=== PATIENT | female | born 1940 | race Caucasian/White ===

== ENCOUNTER 2016-10-05 10:31 | Inpatient (IN) | payer MEDICARE, BC ==
--- NOTE | ~2016-10-05 | CN ---
Consultation Report [facility] [address] [place]. [address] NAME: GUSTABO MAGALLANES DECEMBER : [birth year] STATUS : ADM IN [facility]#: [id number] AGE: 75 ADM/REG DATE : 10/05/16 MR#: [id number] REPORT SERV DATE: 10/09/16 DICTATED BY: CATY SPEAR DATE: 10/09/16 REPORT STATUS : Draft TRANSCRIBED BY: MODL DATE: 10/09/16 INFECTIOUS DISEASE CONSULT DATE OF CONSULTATION: REASON FOR REFERRAL: Evaluation and treatment of resistant pathogen. HISTORY OF PRESENT ILLNESS: The patient is a 75-year-old female. She has a history of hypertension, diabetes mellitus, hypothyroidism, atrial fibrillation, and hyperlipidemia. She had a long hospitalization at [facility] in the fall of 2015, among other things, suffered cerebrovascular accident, was left with encephalopathy, essentially nonresponsive with that. She became vent dependent and has been vent dependent since then at [facility]. I do not have any history here of antibiotic treatment in the intervening period. Since she left [facility], she was admitted here on 10/05/2016 after an observed aspiration event. She had no fever, but marked rise in white blood cell count, and an elevated procalcitonin, and a chest x-ray with new infiltrates on the right lung. Cultures, tracheal aspirate were obtained. She was started empirically on vancomycin and Zosyn. Blood cultures were done and have remained negative. Her urine did show pyuria and is growing gram-positive cocci. A tracheal aspirate showed many white blood cells and many gram-positive cocci, actually on the Gram stain, then, grew abundant Acinetobacter that is resistant to all tested antibiotics. She in the meantime on vancomycin and Zosyn has remained afebrile. White blood cell count has gone almost to normal. Her chest x-ray has improved since admission. She continues on the ventilator, but of course is chronically dependent on that and unlikely to ever come off it. PAST MEDICAL HISTORY: Otherwise, unremarkable. MEDICATIONS: As mentioned above, more than 40 minutes of time were spent reviewing extensive records and cultures in addition to the usual consult time. ALLERGIES: SHE HAS NO KNOWN ANTIMICROBIAL ALLERGIES. SOCIAL HISTORY: She is a resident of [facility]. There is no family present. She has no history of smoking or alcohol abuse. Per the record, she is . FAMILY HISTORY: Noncontributory. PHYSICAL EXAMINATION: GENERAL: A chronically ill-appearing, elderly, female, lying quietly in bed, unresponsive on the ventilator via a trach. VITAL SIGNS: Her temperature has remained normal. It at present is 98.3, pulse 77, respirations 29, blood pressure 100/40, weight 75 kg. HEENT: Sclerae are clear. Mouth shows dry mucous membranes. No ulcerations. NECK: Without lymphadenopathy. Trach site shows no signs of inflammation. Consultation Report [place] [id number] [address] NAME: GUSTABO MAGALLANES DECEMBER : [birth year] STATUS : ADM IN [facility]#: [id number] AGE: 75 ADM/REG DATE : 10/05/16 MR#: [id number] REPORT SERV DATE: 10/09/16 DICTATED BY: CATY SPEAR DATE: 10/09/16 REPORT STATUS : Draft TRANSCRIBED BY: ESTEBAN DATE: 10/09/16 LUNGS: There are scattered crackles heard anteriorly, otherwise clear, but they are mainly focused on the right. HEART: Irregular. ABDOMEN: Soft, nontender. Positive bowel sounds. EXTREMITIES: Without clubbing or cyanosis. No rashes noted. IV site without signs of inflammation in the right upper extremity. LABORATORY DATA: White count is 24.5 at admission, 11.1 today with hematocrit of 24, platelets 249; there were 12% bands two days ago, no bandemia today. BUN and creatinine 50 and 1.68. IMPRESSION: 1. Likely an aspiration pneumonitis, but actually responding to Zosyn showing improvement in white blood cell count and chest x-ray, so I suspect Acinetobacter is a colonization agent and not a pathogen. 2. Possible urinary tract infection. It is difficult to say for sure since her urine will always be abnormal with a chronic Hernandez, but if it is enterococcus, it should be covered by the Zosyn to which it is sensitive. RECOMMENDATIONS: 1. Continue Zosyn. We will treat for five days. We will stop the vancomycin. She needs to continue strict isolation in the ICU with a resistant pathogen. 2. Finally, I will follow the patient with you. I appreciate very much your consulting on this patient. LUZMARIA Caty Spear M.D. / [id number] CC: Russell Beard M.D.
--- NOTE | ~2016-10-05 | CN ---
Consultation Report [facility] [address] [place]. [address] NAME: GUSTABO MAGALLANES DECEMBER : [birth year] STATUS : ADM IN PAT#: [id number] AGE: 75 ADM/REG DATE : 10/05/16 MR#: [id number] REPORT SERV DATE: 10/06/16 DICTATED BY: BRUNO WALLS DATE: 10/06/16 REPORT STATUS : Draft TRANSCRIBED BY: MODL DATE: 10/06/16 GI CONSULTATION DATE OF CONSULTATION: 10/06/2016 REASON FOR CONSULTATION: Evaluation and management of hematemesis. HISTORY OF PRESENT ILLNESS: It should be noted that the history of present illness has been gathered from the chart as well as talking to the urban anthropologist service. Ms. Magallanes is a 75-year-old female patient, who was seen by Dr. Lawson in 04/2016 for possible biliary malignancy, undergoing EUS 05/06/2016. She has a history of on 05/14/2017 suffering an apparent left hemispheric stroke and was transferred from [facility] to [facility] for potential endovascular intervention and appears that she received a PEG tube there as well as tracheostomy with chronic ventilator dependence, now living at [facility]. She was sent over from [facility] yesterday secondary to what appears to have been large volume coffee-grounds emesis with subsequent aspiration. She has been afebrile. She has noted dark, dried, old blood around her mouth and on her tongue. Her PEG tube presently is to wall suction with green and dark [id number] intermixed pieces in it. She is minimally responsive. There is no obvious abdominal discomfort on exam. I have discussed the case with [employer]. We will potentially plan on doing an endoscopy today to rule out esophagitis, gastritis, peptic ulcer disease, or ulcer secondary to PEG tube. 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 ALLERGIES: SHE HAS NO KNOWN DRUG ALLERGIES. SOCIAL HISTORY: She is . There is no history of alcohol tobacco or illicits. She is presently living at [facility]. HOME MEDICATIONS: Tylenol, albuterol, aspirin, baclofen, Rocephin, Zyrtec, Lasix, Enulose, Keppra, levothyroxine, Lopressor, probiotic, Singulair, multivitamin, Protonix, Dilantin, potassium, Zocor, Ultram, and glucagon. REVIEW OF SYSTEMS: Unable to be obtained secondary to the patient's mental status. PERTINENT LABORATORY DATA: Sodium 141, potassium 3.8, BUN is 55, creatinine 2.09. White count 18.9, hemoglobin 7.2, hematocrit 22.7, platelet count 361. INR of 1.4. Consultation Report [facility] [address] [place]. [address] NAME: GUSTABO MAGALLANES DECEMBER : [birth year] STATUS : ADM IN [facility]#: [id number] AGE: 75 ADM/REG DATE : 10/05/16 MR#: [id number] REPORT SERV DATE: 10/06/16 DICTATED BY: BRUNO WALLS DATE: 10/06/16 REPORT STATUS : Draft TRANSCRIBED BY: ESTEBAN DATE: 10/06/16 PHYSICAL EXAMINATION: VITAL SIGNS: Temperature 99.1, pulse 99, respirations 32, blood pressure 113/48. NEURO: Reveals a minimally responsive female, resting in bed with eyes closed. GENERAL: She is in no obvious distress. Unable to assess orientation. HEAD EARS, EYES, NOSE, AND THROAT: Anicteric. Pupils are equal, round, reactive to light and accommodation. Normocephalic, atraumatic. NECK: No JVD. No palpable nodes. LUNGS: Rhonchi throughout. Ventilator and tracheostomy in place. CARDIOVASCULAR SYSTEM: Irregularly irregular rate and rhythm. Atrial fib, controlled rate though. ABDOMEN: Soft. Mild abdominal wall edema. PEG tube without any drainage around it or redness. No bleeding around it. The PEG tube to suction has green to brown to black output in it. Hypoactive bowel sounds. EXTREMITIES: 2+ bilateral lower extremity edema. ASSESSMENT AND PLAN: 1. Upper gastrointestinal bleed with coffee-ground emesis, reported very large volume. 2. Acute blood loss anemia with a history of chronic anemia. 3. Aspiration pneumonia. 4. Chronic respiratory failure, ventilator dependent. 5. Dysphagia with chronic PEG. 6. History of left cerebrovascular accident with resultant right hemiparesis. PLAN: 1. EGD today. 2. Follow H and H. 3. Continue Protonix drip. 4. Other recommendations to follow endoscopy. FABIEN/ESTEBAN LAURA Joe / [id number] CC: Russell Beard M.D.
--- NOTE | ~2016-10-05 | EGD ---
EGD REPORT [facility] [address] [place]. [address] NAME: PAM MAGALLANES : 36 STATUS : ADM IN PAT#: [id number] AGE: 75 ADM/REG DATE : 10/05/16 MR#: [id number] REPORT SERV DATE: 10/07/16 DICTATED BY: JUAN LUIS CHERY DATE: 10/07/16 REPORT STATUS : Draft TRANSCRIBED BY: IATARH [facility] DATE: 10/07/16 Endoscopy Center Patient Name: Pam Magallanes Date of : 1940 Attending MD: JUAN LUIS CHERY MD Procedure Date No Time: 10/06/2016 Procedure: Upper GI endoscopy Indications: Hematemesis Medicines: Monitored Anesthesia Care Complications: No immediate complications. Estimated blood loss: Minimal. Procedure: Pre-Anesthesia Assessment: - ASA Grade Assessment: IV - A patient with severe systemic disease that is a constant threat to life. After obtaining informed consent, the endoscope was passed under direct vision. Throughout the procedure, the patient's blood pressure, pulse, and oxygen saturations were monitored continuously. The GIF [id number] was introduced through the mouth, and advanced to the second part of duodenum. The upper GI endoscopy was accomplished without difficulty. The patient tolerated the procedure well. Findings: Few superficial esophageal ulcers with no bleeding and no stigmata of recent bleeding were found at the gastroesophageal junction. The largest lesion was 8 mm in largest dimension. One non-bleeding cratered gastric ulcer with no stigmata of bleeding was found in the gastric body under the PEG. The lesion was 6 mm in largest dimension. The PEG tube was loosened. One oozing superficial gastric ulcer was found in the gastric body, secondary to trauma from the PEG tube being hooked up to suction. The lesion was 8 mm in largest dimension. A medium-sized hiatus hernia was present. The examined duodenum was normal. Impression: - Non-bleeding esophageal ulcers. - Gastric ulcer with clean base under PEG tube. Loosened. - Gastric ulcer oozing blood. PEG removed from suction. - Hiatal hernia. - Normal examined duodenum. Recommendation: - NPO for 1 day. - Use Protonix (pantoprazole) 40 mg PO BID for 8 weeks. EGD REPORT [address] [address] NAME: PAM MAGALLANES DECEMBER : [birth year] STATUS : [facility]#: [id number] AGE: 75 ADM/REG DATE : 10/05/16 MR#: [id number] REPORT SERV DATE: 10/07/16 DICTATED BY: JUAN LUIS CHERY DATE: 10/07/16 REPORT STATUS : Draft TRANSCRIBED BY: [employer] DATE: 10/07/16 Procedure Code(s): --- Professional --- 66402, Esophagogastroduodenoscopy, flexible, transoral; diagnostic, including collection of specimen(s) by brushing or washing, when performed (separate procedure) Diagnosis Code(s): --- Professional --- K22.10, Ulcer of esophagus without bleeding K25.9, Gastric ulcer, unspecified as acute or chronic, without hemorrhage or perforation K25.4, Chronic or unspecified gastric ulcer with hemorrhage K92.0, Hematemesis CPT copyright 2013 [employer]. All rights reserved. The codes documented in this report are preliminary and upon machine shop worker review may be revised to meet current compliance requirements. Juan Luis Chery MD JUAN LUIS CHERY MD 10/07/2016 9:40 AM This report has been signed electronically. Number of Addenda: 0 Note Initiated On: 10/06/2016 5:39 PM Scope Withdrawal Time 0 hours 0 minutes 0 seconds [address] [place] [address]
--- NOTE | ~2016-10-05 | HP ---
History And Physical [place] [id number] [place]. [address] NAME: GUSTABO MAGALLANES DECEMBER : [birth year] STATUS : ADM IN [facility]#: [id number] AGE: 75 ADM/REG DATE : 10/05/16 MR#: [id number] REPORT SERV DATE: 10/06/16 DICTATED BY: ANDREA JOLLEY DATE: 10/06/16 REPORT STATUS : Draft TRANSCRIBED BY: MODL DATE: 10/06/16 DATE OF ADMISSION: 10/05/2016 Ashley Chavez, nurse practitioner, dictating for Dr. Andrea Jolley. CHIEF COMPLAINT: The patient is a 75-year-old female, who was transferred from [facility] for complaint of hematemesis and possible aspiration pneumonia. HISTORY OF PRESENT ILLNESS: The patient is a 75-year-old female with a history of chronic respiratory failure with mechanical ventilator dependency, is a resident of [facility] at [facility], was transferred to the emergency room for bloody emesis and suspicion of aspiration pneumonia. Patient with chronic respiratory failure required mechanical ventilation with history of CVA with right-sided weakness. Intensivists were consulted yesterday for management of mechanical ventilation. The patient was empirically treated with IV Zosyn and vancomycin for aspiration pneumonia as well as IV fluids and IV Protonix. The patient was admitted to MICU for continued mechanical ventilation support and medical management. The patient is sedated and unable to arouse even with moderate stimulation, therefore unable to obtain complete medical family and social history. No family members present at the bedside and most information obtained from reviewing current medical record from [facility] as well as records obtained from [facility] at [facility]. ALLERGIES: NO KNOWN DRUG ALLERGIES. CODE STATUS: DNR limited. MEDICATIONS: Currently includes 1. Baclofen 5 mg p.o. t.i.d. 2. Cefepime 1 g IV q.12 hours. 3. Vancomycin pharmacy dosing. 4. Metoprolol tartrate 12.5 mg p.o. q.12 hours. 5. Keppra 500 mg p.o. q.12 h. 6. Synthroid 150 mcg p.o. a.c. before breakfast. 7. Lactulose 45 mL p.o./liquid b.i.d. 8. Ipratropium albuterol 3 mL inhalation q.4 hours. 9. Dextrose 5% water 50 mL IV q.12 hours. 10.The patient is currently on Precedex drip as well as normal saline at 100 mL/h. PAST MEDICAL HISTORY: To include 1. Diabetes. 2. Hypertension. 3. Hypothyroidism. 4. History of atrial fibrillation. 5. Dysphagia status post PEG. History And Physical [place] [address] [place]. [address] NAME: GUSTABO MAGALLANES DECEMBER : [birth year] STATUS : ADM IN [facility]#: [id number] AGE: 75 ADM/REG DATE : 10/05/16 MR#: [id number] REPORT SERV DATE: 10/06/16 DICTATED BY: ANDREA JOLLEY DATE: 10/06/16 REPORT STATUS : Draft TRANSCRIBED BY: ESTEBAN DATE: 10/06/16 6. Hyperlipidemia. 7. History of ischemic stroke in April of 2016. 8. Chronic respiratory failure, mechanical vent dependence. 9. History of seizure. 10.History of left upper extremity DVT. 11.History of encephalopathy secondary to ischemic stroke. 12.Right hemiparesis secondary to left MCA ischemic stroke. PAST SURGICAL HISTORY: 1. History of AICD placement by Dr. Casey. 2. Pericardial window. 3. Status post tracheostomy and PEG tube placement. SOCIAL HISTORY: The patient is a current resident at the [facility]. No history of alcohol, tobacco, or illegal drug use. REVIEW OF SYSTEMS: Limited secondary to the patient unresponsive. PHYSICAL EXAMINATION: VITAL SIGNS: Temperature of 91.1, pulse of 99, respiratory rate 31 on CMV, blood pressure of 113/48, O2 saturation of 98%, and fiO2 at 40% with CMV mechanical ventilation with tidal volume of 400, a total tidal volume of 50, PEEP of 26, FiO2 of 40%, and PEEP of 5. LABORATORY STUDIES: To include ABG done on 10/05/2016 with pH of 7.57, pCO2 of 29, PO2 of 264, HCO2 of 26, and FiO2 of 100%. ABG repeated on 10/06/2016 with pH of 7.5, pCO2 of 36, PO2 of 19, HCO2 of 27.9, and IO2 of 40.0. Troponin was 0.06. Lactate on admission on 10/05/2016 was 4.5 and repeat this morning was 4.0. WBC on admission on admission on 3.8 was 24.8, hemoglobin 10.0, hematocrit 32.1. Repeat today WBC of 18.9, hemoglobin 7.2, hematocrit 22.7, INR of 1.4, PT 14, 17.3, PTT of 28.7, platelet of 501 on 10/05/2016 on 10/13/2016 today. On 10/05/2016, sodium was 136, potassium of 5.0, chloride 95, CO2 of 28, BUN 46, creatinine of 2.3, GFR of 23, and glucose of 128. On 10/06/2016, sodium of 141, potassium 3.8, chloride 105, CO2 of 25, BUN 55, creatinine 2.09, GFR of 22, and glucose of 113. Mag on 10/05/2016 was 2.8; repeat today at 10/06/2016 was 2.4, phosphorus is 5.3, AST on 10/05/2016 was 28, bilirubin 0.7, total protein was 8.2, ALT 12, albumin of 1.5, and ALP was 82. On 10/06/2016, AST of 19, bilirubin of 0.5, total protein of 6.3, ALT 13, albumin 1.2, and ALP of 64. Chest x-ray on 10/05/2016 revealed extensive new airspace disease in the right lung that may be related to pneumonia, aspiration or post obstructive pneumonitis. No pneumothorax or pleural effusion noted. Repeat chest x-ray on 10/06/2016, substantial change in the patient's position obscuring the right hilum. No extensive infiltrate seen elsewhere. Blood culture 2/2- times 1 day. Sputum Gram stain is greater than 100 wbc's with many gram- positive cocci in pairs, rare yeast. Serum cultures pending. History And Physical [address] [address] NAME: GUSTABO MAGALLANES DECEMBER : [birth year] STATUS : ADM IN [facility]#: [id number] AGE: 75 ADM/REG DATE : 10/05/16 MR#: [id number] REPORT SERV DATE: 10/06/16 DICTATED BY: ANDREA JOLLEY DATE: 10/06/16 REPORT STATUS : Draft TRANSCRIBED BY: MODL DATE: 10/06/16 PHYSICAL EXAMINATION: NEUROLOGIC: The patient is unresponsive. HEENT: Oral mucosa moist. Eyes, PERRL, nonicteric bilaterally. NECK: Noted trach secured without drainage. CHEST: No deformity noted. LUNGS: Clear to auscultation bilaterally. CV: No murmurs noted. Noted slightly irregular heart rate and rhythm. ABDOMEN: Soft, nontender, obese with hypoactive bowel sounds throughout. PEG tube secured in the left upper quadrant without drainage noted feeding connected at this time since patient n.p.o. EXTREMITIES: Noted right arm peripheral IV, dry and intact dressing without redness. Left arm peripheral IV secured. Right inner thigh dressing is intact, sacral dressing intact, and right lateral health dressing intact 2+ noted in bilateral lower extremity. Both heels are floated. IV fluids, currently with Precedex drip and normal saline 100 mL/h and normal saline at 20 mL/h. ASSESSMENT: 1. Hematemesis likely secondary to possible GI bleed. 2. Leukocytosis likely secondary to aspiration pneumonia versus hospital-acquired pneumonia. 3. Right lung pneumonia, aspiration versus healthcare associated pneumonia. 4. Acute blood loss with a history of chronic anemia, likely secondary to possible GI bleed. 5. Possible GI bleed. 6. Chronic respiratory failure, status post ischemic stroke. 7. Dysphagia, status post PEG tube. 8. Type 2 diabetes. 9. History of atrial fibrillation, status post AICD. 10.Hypertension, controlled. 11.Hypothyroidism. 12.History of previous left MCA ischemic stroke with right-sided weakness. 13.History of seizure disorder. 14.History of DVT of the left upper extremity. 15.History of encephalopathy secondary to CVA. PLAN: 1. Appreciate consult with the associate professor of geology to manage the patient's mechanical ventilation. Continue to monitor sat O2, breathing treatment, trach care and suction. The patient currently on CMV with FiO2 of 40%, no current weaning at this time. The patient is at risk for further hypoxia. 2. Patient with possible GI bleed. GI consult appreciated. The patient was seen and is pending EGD by Dr. Chua. The patient remained n.p.o. The patient did have a type and cross for 2 units of packed red blood cells as needed on 10/05/2016. Admission H and H were 10.0 and 30.2; this morning is 7.2 and 22.7. We will hopefully discover the History And Physical [address] [place]. [address] NAME: GUSTABO MAGALLANES DECEMBER : [birth year] STATUS : ADM IN PAT#: [id number] AGE: 75 ADM/REG DATE : 10/05/16 MR#: [id number] REPORT SERV DATE: 10/06/16 DICTATED BY: ANDREA JOLLEY DATE: 10/06/16 REPORT STATUS : Draft TRANSCRIBED BY: MODL DATE: 10/06/16 source of bleeding and if needed, we will transfuse the patient and monitor H and H closely. The patient is at risk for acute myocardial infarction or further hypoxia. 3. Right lung pneumonia, likely aspiration versus hospital acquired pneumonia. The patient's admission chest x-ray was abnormal with changes in the right lung and repeat, this morning did not show much improvement. We will continue to follow chest x-ray. The patient's recent Gram stain does show significant gram-positive cocci. Sputum culture is pending. We will follow culture. Patient currently being empirically treated with cefepime and vancomycin. Managed by pharmacy. Pharmacy will follow Vanco trough and adjust the dosing depending on creatinine. 4. Possible GI bleed. Pending EGD by GI today. Continue IV Protonix and monitor H and H closely. No current anticoagulation given the patient's possible GI bleed. The patient did have a history of being on aspirin. We will continue sequential device for DVT prophylaxis. 5. Chronic respiratory failure, secondary to history of CVA. The patient remained on the vent, managed by intensivists. No weaning at this time. 6. Patient with a PEG tube but currently n.p.o. pending EGD. We will monitor PEG site and when patient is ready for resuming tube feeding, we will have registered dietitian recommend tube feeding in initial rate as well as max rate. Keep head of bed greater than 30 degrees. The patient is at risk for recurrent aspiration. 7. Patient with history of diabetes. We will closely monitor blood sugar. The patient's serum blood sugar was 113 this morning but the patient is n.p.o. We will place the patient on sliding scale level 1 once patient starts her tube feeding and monitor for elevated blood sugar results and if needed, we will give p.r.n. sliding scale NovoLog. The patient is at risk for DKA. 8. The patient with history of atrial fibrillation is status post AICD with slight irregular beat. The patient's heart rate is better controlled. The patient currently not on any anticoagulation given the patient's current possible acute GI bleed. Medication list from [facility] reveals the patient not on any aggressive anticoagulation therapy, only on aspirin. The patient is at risk for RVR, CVA. 9. Patient with history of hypertension, appears to be in good control. We will continue current med regimen with beta makenna. The patient is at risk for CVA, blood pressure not well controlled. 10.We will resume levothyroxine for treatment of hypothyroidism. 11.Continue current regimen of fentanyl, pending fentanyl level today to monitor for any signs and symptoms of seizure. The patient is at risk for status epilepticus. 12.Once the patient's medical condition is more stable and improved, we will likely need to refer her to PT. Continue frequent positional changes. The patient was seen by wound care today. Recommend daily wound care to thoracic spine, sacral wound. The patient is at risk for wound infection or osteomyelitis. 13.The patient remains a code status of DNR with limited intervention. Post form copy in chart. Once the patient's medical condition is stable, we will plan to discharge the patient back to [facility] for continued long-term care. 14.Acute on chronic kidney disease stage 3. We will continue to monitor renal function. The patient is at risk for worsening acute kidney injury/hemodialysis. 15.We will continue current IV fluids. Monitor blood pressure. The patient is at risk for sepsis, septic shock. History And Physical [address] [address] NAME: GUSTABO MAGALLANES DECEMBER : [birth year] STATUS : ADM IN [facility]#: [id number] AGE: 75 ADM/REG DATE : 10/05/16 MR#: [id number] REPORT SERV DATE: 10/06/16 DICTATED BY: ANDREA JOLLEY DATE: 10/06/16 REPORT STATUS : Draft TRANSCRIBED BY: ESTEBAN DATE: 10/06/16 DICTATED BY: DEBI Villavicencio/ESTEBAN Andrea Jolley M.D. / [id number] CC: Huber Costa M.D.
--- NOTE | ~2016-10-05 | DS ---
Discharge Summary [facility] [address] [place]. [address] NAME: GUSTABO MAGALLANES DECEMBER : [birth year] STATUS : DIS IN PAT#: [id number] AGE: 75 ADM/REG DATE : 10/05/16 MR#: [id number] REPORT SERV DATE: 10/25/16 DICTATED BY: ANDREA JOLLEY DATE: 10/24/16 REPORT STATUS : Draft TRANSCRIBED BY: ESTEBAN DATE: 10/24/16 Data Collection from hospitalization DISCHARGE DIAGNOSES: 1. Right lung pneumonia - aspiration/healthcare-acquired pneumonia with multi-drug resistant organisms. 2. Leukocytosis. 3. Upper gastrointestinal bleed secondary to distal esophagus ulcer and ulcer adjacent to the PEG tube. 4. Chronic respiratory failure. 5. Dysphagia with PEG tube. 6. Type 2 diabetes mellitus. 7. History of atrial fibrillation, status post ICD. 8. Hypertension - controlled. 9. Hypothyroidism. 10.History of ischemic stroke and a history of seizure. 11.Right hemiparesis. CONSULTATIONS: 1. Branden Guerra M.D. 2. LAURA Joe. 3. Helder Cullen M.D. PROCEDURES PERFORMED: Upper GI endoscopy on 10/06/2016. PATHOLOGY: ( ). MEDICATIONS: Dilantin 100 mg per PEG tube every eight hours, Protonix 40 mg per PEG tube before breakfast, Tylenol 650 mg every six hours as needed orally or rectally as instructed, sodium bicarbonate 325 mg as needed, Keppra 500 mg per PEG tube twice a day, Ativan 2 mg every three hours via PEG tube as instructed, and morphine sulfate solution every three hours as instructed. CONDITION AT DISCHARGE: Stable. DISPOSITION: The patient was transferred to [facility], comfort measures only. HOSPITAL COURSE: This is a 75-year-old female who was transferred from [facility] for complaints of hematemesis and possible aspiration pneumonia. The patient has a history of chronic respiratory failure with mechanical ventilator dependency. The patient was transferred to the emergency room with bloody emesis and suspicion of aspiration pneumonia. The patient has chronic respiratory failure and required mechanical ventilation with a history of CVA with right-sided weakness. The patient was admitted to the MICU for continued mechanical ventilation support and medical management. Upon admission, the patient was seen by Dr. Branden Guerra. The patient was started on cefepime and vancomycin in the emergency room. She received pulsed saline and Protonix Discharge Summary [place] [address] [place]. [address] NAME: GUSTABO MAGALLANES : [birth year] STATUS : DIS IN PAT#: [id number] AGE: 75 ADM/REG DATE : 10/05/16 MR#: [id number] REPORT SERV DATE: 10/25/16 DICTATED BY: ANDREA JOLLEY DATE: 10/24/16 REPORT STATUS : Draft TRANSCRIBED BY: ESTEBAN DATE: 10/24/16 drip. IV Protonix was continued as well as sequential device for DVT prophylaxis. Level 1 sliding scale insulin would begin once the patient started her tube feedings. The patient remained a DNR code status with limited intervention. The following day, the patient was seen by Tristin Guevara. The patient was minimally responsive. The patient has had upper GI bleed with coffee-grounds emesis - reported very large volume. She was felt to have acute blood loss anemia with a history of chronic anemia. An EGD was going to be performed. Protonix drip was continued. The patient was taken to the endoscopic suite by Dr. Juan Luis Chua where she underwent the above-mentioned procedure. She tolerated this well, and there were no complications. There were nonbleeding esophageal ulcers. There was a gastric ulcer with clean base under the PEG tube that was loosened. The gastric ulcer with oozing blood. The PEG tube was removed from suction. There was a hiatal hernia. There was a normal examined duodenum. On 10/07/2016, the patient remained on the ventilator. There were no signs of further bleeding. Hemoglobin was stable. Tube feedings would be resumed later in the day. Antibiotics were continued. On 10/08/2016, chest x-ray showed some vascular congestion. White blood cell count was 11.1. She remained mostly unresponsive except to pain. She was seen in consultation by Dr. Helder Cullen for evaluation and treatment of resistant pathogen. Cultures and tracheal aspirate had been obtained. She had been started empirically on vancomycin and Zosyn. Blood cultures had remained negative. Her urine did show pyuria and was growing gram- positive cocci. Tracheal aspirates showed many white blood cells and many gram-positive cocci actually on the Gram stain and then grew abundant Acinetobacter that was resistant to all tested antibiotics. In the meantime, while on vancomycin and Zosyn, she remained afebrile. Her white count was almost to normal. Chest x-ray had improved since admission. She was felt to likely have aspiration pneumonitis, but was actually responding to Zosyn. This was continued. Vancomycin was stopped. She has remained on strict isolation in the ICU with this resistant pathogen. On 10/09/2016, she was slightly more responsive. She was in no distress. A rectal tube was in place. On 10/10/2016, she remained sedated on the ventilator. She was afebrile. White count 14.5. IV heparin continued. Stool was being checked for C. difficile. The patient was being treated with IV cefepime. She completed her IV cefepime on 10/11/2016. The patient was receiving comfort measures at this time. Tube feedings had been discontinued. The patient has carbapenems resistant Acinetobacter. She remained afebrile. She was continued on comfort measures. Her ICD was deactivated on 10/12/2016. She remained hemodynamically stable. On 10/14/2016, she remained unresponsive. Her T-max was 100.1. We discussed the patient's condition at length with her who was in agreement with comfort care measures. Discharge instructions were given. Due to her stable condition, she was discharged to [facility] at [facility] with the above-stated instructions. Information collected by: Tatum Borges I submit the above information as my discharge summary. KADIE/ESTEBAN Andrea Jolley M.D. Discharge Summary [address] [address] NAME: GUSTABO MAGALLANES DECEMBER : 36 STATUS : DIS IN PAT#: [id number] AGE: 75 ADM/REG DATE : 10/05/16 MR#: [id number] REPORT SERV DATE: 10/25/16 DICTATED BY: ANDREA JOLLEY DATE: 10/24/16 REPORT STATUS : Draft TRANSCRIBED BY: ESTEBAN DATE: 10/24/16 / [id number] CC: Andrea Jolley M.D. Tristin LAURA Guevara M.D. [facility]
--- NOTE | ~2016-10-05 | CN ---
Consultation Report [facility] [address] [place]. [address] NAME: GUSTABO MAGALLANES DECEMBER : 36 STATUS : ADM IN LOCATED [facility]IN [facility]#: [id number] AGE: 75 ADM/REG DATE : 10/05/16 MR#: [id number] REPORT SERV DATE: 10/05/16 DICTATED BY: KAYA GUERRA DATE: 10/05/16 REPORT STATUS : Draft TRANSCRIBED BY: MODL DATE: 10/05/16 CONSULTATION DATE OF CONSULTATION: 10/05/2016 TIME: 1315 hours. Seen in ER bed 4. HISTORY OF PRESENT ILLNESS: A 75-year-old white female, who presents to the [facility] this morning with hematemesis and GI bleed. She is at [facility] on chronic ventilation, said she stayed at [facility] several months ago. She has sequelae of this severe stroke. She had dropped her O2 saturations and is suspected to have aspirated versus hospital- acquired pneumonia. She has a chronic tracheostomy in place. On arrival in the ER, blood pressure was 130/43, temperature 99, respiratory rate 24. She got a pulse saline and Protonix drip, started on cefepime and vancomycin. PAST MEDICAL HISTORY: Significant for ischemic CVA, right-sided weakness, and aphasia. The patient says she is minimally responsive. She has seizure history, diabetes, hypothyroidism, hypertension, atrial fibrillation, hyperlipidemia, obstructive jaundice with ERCP in 04/2016 with stent placed. She had DVT history in left upper extremity, dysphagia status post PEG. She has a pacemaker placed by Dr. Casey. ALLERGIES: NO KNOWN ALLERGIES. PHYSICAL EXAMINATION: GENERAL: Currently, the patient is orally as tracheotomy, placed on a ventilator. VITAL SIGNS: Blood pressure 118/55, pulse 160, AFib, temperature 99. LUNGS: Rhonchi bilaterally, right greater than left. Chest x-ray shows right lower lobe infiltrate. CARDIAC: Regular, atrial fibrillation. ABDOMEN: Soft and nontender. PEG tube in place. EXTREMITIES: Left leg appears to be swollen. NEUROLOGIC: She is minimally responsive. LABORATORY DATA: Sodium 136, potassium 5.0, chloride 95, CO2 of 28, BUN 46, creatinine 2.03 which is up. H and H 10 and 32, white count 24,506, platelets 101,000. Albumin 1.5. Total bilirubin 0.7. Troponin 0.06. PT 17.3, INR 1.4, PTT 20.5. Lactate 4.5. Arterial blood gas showed pH of 7.57, pCO2 of 29, pO2 of 64 on 100%. IMPRESSION: 1. Hematemesis. 2. Possible aspiration pneumonia with infiltrate and leukocytosis. 3. Chronic respiratory failure, on ventilator dependence. 4. Previous cerebrovascular accident. 5. Diabetes, hypothyroidism, atrial fibrillation, and hypertension. Consultation Report [place] [address] [place]. [address] NAME: GUSTABO MAGALLANES DECEMBER : [birth year] STATUS : ADM IN PAT#: [id number] AGE: 75 ADM/REG DATE : 10/05/16 MR#: [id number] REPORT SERV DATE: 10/05/16 DICTATED BY: KAYA GUERRA DATE: 10/05/16 REPORT STATUS : Draft TRANSCRIBED BY: ESTEBAN DATE: 10/05/16 PLAN: Continue IV fluids antibiotics. Get GI consult. Start Protonix infusion. Med list, please see chart. HOME MEDICATIONS: Include acetaminophen 325, albuterol nebulization, aspirin 81 mg daily, baclofen 10 mg by PEG three times daily, Rocephin 1 g IV started on 10/04/2016, Zyrtec 10, furosemide 40, lactulose 10/45 mL twice a day, Keppra 500 mg per PEG twice a day, Synthroid 150 per PEG before breakfast, Lopressor 12.5 mg per PEG twice a day, probiotic capsule once daily, Singulair 10 mg every morning, multivitamins, Protonix 40, Dilantin 100 mg by PEG every eight hours, KCl 30 mEq every morning, tramadol 50 every 12 hours, Zocor 20. RP/ESTEBAN Kaya Guerra M.D. / [id number] CC: Russell Beard M.D.
[~2016-10-05 10:31] MED LIST: ACTONEL35 MG PO; ALTA2.5 PO; ASAB PO; BEN25 PO; CALGLUCTAB PO; CALTRA600D PO; D3; L20 PO; LEVOTHYROXIN100 MCG PO; LEVOTHYROXIN112 MCG PO; LEVOTHYROXIN150 MCG PO; LEVOTHYROXIN88 MCG PO; MAXIMUM D3 PO; MULTIPLE VIT PO; MULTIVIT/MIN PO; NORCO1 TA1 PO; OS500+D PO; OYST-CAL500 MG PO; PR25 PO; PRADAXA150 MG PO; PRAV10 PO; ROCALTROL 0.0.25 MCG OR; ROCALTROL0.25 MCG OR; RYTHMOL225 MG PO; SYN112 PO; TOPXL50 PO; VITAMIN D31000 UNIT PO; VITD PO
[2016-10-05 11:09] LABS: BASOPHILS 0.1 %; BASOPHILS ABSOLUTE 0.02 10/3/uL (0.0-0.16); EOSINOPHILS 0.1 %; EOSINOPHILS ABSOLUTE 0.02 10/3/uL (0.0-0.53); HEMATOCRIT 32.1 % (36.0-48.0); IMMATURE GRANULOCYTES 0.4 %; LYMPHOCYTES 3.1 %; LYMPHOCYTES ABSOLUTE 0.75 10/3/uL (0.67-4.30); MEAN CORPUS HGB CONC 31.2 g/dL (32.0-36.0); MEAN CORPUSCULAR HEMOGLOB 30.7 pg (26.0-34.0); MEAN CORPUSCULAR VOLUME 98.5 fL (80-100); MEAN PLATELET VOLUME 9.1 fL (9.2-13.0); MONOCYTES 2.3 %; MONOCYTES ABSOLUTE 0.57 10/3/uL (0.21-1.20); NEUTROPHILS ABSOLUTE 23.07 10/3/uL (2.02-8.40); PLATELET COUNT 501 10/3/uL (150-400); RED CELL COUNT 3.26 10/6/uL (4.0-5.6)
[2016-10-05 11:10] LABS: ER CBC TAT 0 Hrs 07 Mins; MANUAL DIFF NO %; WHITE BLOOD CELLS 24.5 10/3/uL (4.5-10.5)
[2016-10-05 11:14] LABS: INTERNATIONAL NORMAL RATI 1.4 UNITS (-); PARTIAL THROMBO TIME 28.7 SEC (22.5-37.2)
[2016-10-05 11:15] LABS: PROTIME (NOT ORD) 17.3 SEC (12.0-14.5)
[2016-10-05 11:26] LABS: CALCIUM, SERUM 8.8 MG/DL (8.5-10.4); CHLORIDE, SERUM 95 MMOL/L (96-112); CO2 (CARBON DIOXIDE) 28 MMOL/L (24-34); SODIUM, SERUM 136 MMOL/L (135-148)
[2016-10-05 11:28] LABS: BUN (BLOOD UREA NITROGEN) 46 MG/DL (6-23); CHEST PAIN PROFILE TAT 0 Hrs 25 Mins; CREATININE 2.03 MG/DL (0.55-1.02); GFR AFRICAN AMERICAN 27 ML/MIN (>=60); GFR NON AFRICAN AMERICAN 23 ML/MIN (>=60); GLUCOSE, SERUM 128 MG/DL (60-99); TROPONIN I 0.06 NG/ML (<0.05)
[2016-10-05 11:32] LABS: ANISOCYTOSIS 1+ (5-10/OIF) (0-5/OIF); BAND NEUTROPHILS 6 %; ER DIFF TAT 0 Hrs 29 Mins; LYMPHOCYTES 6 %; LYMPHOCYTES ABSOLUTE (CALC) 1.47 10/3/uL (0.67-4.30); MONOCYTES 4 %; MONOCYTES ABSOLUTE (CALC) 0.98 10/3/uL (0.21-1.20); NEUTROPHILS ABSOLUTE (CALC) 22.05 10/3/uL (2.02-8.40); PLATELET ESTIMATE SLT INC (ADEQUATE); SEGMENTED NEUTROPHIL (0) 84 %; TOTAL NUCLEATED CELLS 100
[2016-10-05 11:47] LABS: ALBUMIN 1.5 G/DL (3.5-5.0); ALKALINE PHOSPHATASE 82 U/L (45-117); DIRECT BILIRUBIN 0.4 MG/DL (0.0-0.4); INDIRECT BILIRUBIN(NOT ORDER) 0.3 MG/DL (0.1-0.9); SGOT(AST) 28 U/L (5-40); SGPT(ALT) 12 U/L (5-65); TOTAL BILIRUBIN 0.7 MG/DL (0-1.2); TOTAL PROTEIN 8.2 G/DL (6.0-8.5)
[2016-10-05] MEDS ORDERED: ASAB PEG (12:49)
[2016-10-05] MEDS ORDERED: PHENY125S PEG (12:50)
[2016-10-05] MEDS ORDERED: PROTONIX PEG (12:50)
[2016-10-05] MEDS ORDERED: LIOR10 PEG (12:50)
[2016-10-05] MEDS ORDERED: ENULOSE PEG (12:51)
[2016-10-05 12:52] LABS: ALLENS TEST Pos; BE (BASE EXCESS) 4.2 MEQ/L (0 +/- 2.5); CARBOXYHEMOGLOBIN 0.5 % (0-3); HEMOBLOGIN CONTENT 9.8 G/DL (12-16); INSTRUMENT SERIAL # 8087; METHEMOGLOBIN 0.4 % (0-3); MODE CMV; O2 CONTENT 14.3 VOL% (18-24); PCO2 (CO2 TENSION) 29 MMHG (35-45); PO2 (O2 TENSION) 264 MMHG (79-93); SAMPLE Arterial; TIDAL VOLUME 400 ML; pH 7.57 (7.37-7.43)
[2016-10-05] MEDS ORDERED: SYN.15 PEG (12:52)
[2016-10-05] MEDS ORDERED: L40 PEG (12:52)
[2016-10-05 12:53] LABS: LACTATE 4.5 MMOL/L (0.3-2.4)
[2016-10-05] MEDS ORDERED: SINGULAIR1 PEG (12:53)
[2016-10-05] MEDS ORDERED: ZYRTEC ALLGY10 MG PEG (12:53)
[2016-10-05] MEDS ORDERED: PROBIOTIC PEG (12:53)
[2016-10-05] MEDS ORDERED: KCL20UDL PEG (12:55)
[2016-10-05] MEDS ORDERED: ROCEPH IM (12:56)
[2016-10-05] MEDS ORDERED: T PEG (12:57)
[2016-10-05] MEDS ORDERED: [UNRECOGNIZED DRUG - OTHER] IM (12:57)
[2016-10-05] MEDS ORDERED: ULTRAM50 PEG (12:58)
[2016-10-05] MEDS ORDERED: KEPPRAUDL PEG (13:00)
[2016-10-05] MEDS ORDERED: ZOCOR20 PEG (13:01)
[2016-10-05] MEDS ORDERED: ALBUTEROL0.083 % INH (13:02)
[2016-10-05] MEDS ORDERED: MULTIVIT/MIN PEG (13:02)
[2016-10-05] MEDS ORDERED: LOP25 PEG (13:02)
[2016-10-05 13:40] LABS: PROCALCITONIN 8.83 ng/mL (<0.5)
[2016-10-05 19:04] LABS: DILANTIN (PHENYTOIN) 2.2 MCG/ML (10.0-20.0); PHOSPHORUS, SERUM 5.3 MG/DL (2.5-4.5)
[2016-10-06 04:03] LABS: ALLENS TEST Pos; BE (BASE EXCESS) 4.6 MEQ/L (0 +/- 2.5); CARBOXYHEMOGLOBIN 1.4 % (0-3); HCO3 (ACTUAL BICARBONATE) 27.9 MEQ/L (23-27); INSTRUMENT SERIAL # 8083; METHEMOGLOBIN 0.1 % (0-3); MODE CMV; O2 CONTENT 11.2 VOL% (18-24); OPERATOR ID 23712; PCO2 (CO2 TENSION) 36 MMHG (35-45); PO2 (O2 TENSION) 119 MMHG (79-93); SAMPLE Arterial; TIDAL VOLUME 400 ML; pH 7.51 (7.37-7.43)
[2016-10-06 04:15] LABS: MEAN CORPUS HGB CONC 31.7 g/dL (32.0-36.0); MEAN CORPUSCULAR HEMOGLOB 30.5 pg (26.0-34.0); MEAN CORPUSCULAR VOLUME 96.2 fL (80-100); MEAN PLATELET VOLUME 8.7 fL (9.2-13.0); PLATELET COUNT 361 10/3/uL (150-400); RBC DISTRIBUTION WIDTH 20.5 % (12.0-16.0); WHITE BLOOD CELLS 18.9 10/3/uL (4.5-10.5)
[2016-10-06 04:30] LABS: A/G RATIO 0.2 (0.7-1.9); ALBUMIN 1.2 G/DL (3.5-5.0); ALKALINE PHOSPHATASE 64 U/L (45-117); BUN (BLOOD UREA NITROGEN) 55 MG/DL (6-23); CALCIUM, SERUM 7.2 MG/DL (8.5-10.4); CHLORIDE, SERUM 105 MMOL/L (96-112); CO2 (CARBON DIOXIDE) 25 MMOL/L (24-34); CREATININE 2.09 MG/DL (0.55-1.02); GFR AFRICAN AMERICAN 26 ML/MIN (>=60); GFR NON AFRICAN AMERICAN 22 ML/MIN (>=60); GLOBULIN 5.1 G/DL (2.5-4.1); GLUCOSE, SERUM 113 MG/DL (60-99); POTASSIUM, SERUM 3.8 MMOL/L (3.5-5.3); SGOT(AST) 19 U/L (5-40); SGPT(ALT) 9 U/L (5-65); SODIUM, SERUM 141 MMOL/L (135-148); TOTAL BILIRUBIN 0.5 MG/DL (0-1.2); TOTAL PROTEIN 6.3 G/DL (6.0-8.5)
[2016-10-06 04:32] LABS: HEMATOCRIT 22.7 % (36.0-48.0); HEMOGLOBIN 7.2 g/dL (12.0-16.0); RED CELL COUNT 2.36 10/6/uL (4.0-5.6)
[2016-10-06 04:33] LABS: MANUAL DIFF YES %
[2016-10-06 05:47] LABS: ANISOCYTOSIS 1+ (5-10/OIF) (0-5/OIF); BAND NEUTROPHILS 8 %; LYMPHOCYTES 2 %; LYMPHOCYTES ABSOLUTE (CALC) 0.38 10/3/uL (0.67-4.30); MONOCYTES 3 %; MONOCYTES ABSOLUTE (CALC) 0.57 10/3/uL (0.21-1.20); NEUTROPHILS ABSOLUTE (CALC) 17.96 10/3/uL (2.02-8.40); SEGMENTED NEUTROPHIL (0) 87 %; TOTAL NUCLEATED CELLS 100; TOXIC GRANULATION SLT
[2016-10-06 05:48] LABS: PLATELET ESTIMATE ADQ (ADEQUATE); VACUOLATED NEUTROPHILES OCC
[2016-10-06 18:28] LABS: ASCORBIC ACID (UR NOT ORDER) NEG (NEG); BILIRUBIN, URINE NEGATIVE (NEG); KETONE, URINE NEGATIVE (NEG); LEUKOCYTE ESTERASE(NOT OR SMALL (NEG)
[2016-10-06 18:29] LABS: WBC (NOT ORDERED) (RFLEX) > 182 (0-5)
[2016-10-07 04:54] LABS: A/G RATIO 0.2 (0.7-1.9); ALBUMIN 1.3 G/DL (3.5-5.0); CALCIUM, SERUM 7.4 MG/DL (8.5-10.4); CHLORIDE, SERUM 105 MMOL/L (96-112); CO2 (CARBON DIOXIDE) 23 MMOL/L (24-34); CREATININE 2.16 MG/DL (0.55-1.02); GFR AFRICAN AMERICAN 25 ML/MIN (>=60); GFR NON AFRICAN AMERICAN 21 ML/MIN (>=60); GLOBULIN 5.5 G/DL (2.5-4.1); POTASSIUM, SERUM 3.5 MMOL/L (3.5-5.3); SGPT(ALT) 13 U/L (5-65); SODIUM, SERUM 142 MMOL/L (135-148); TOTAL BILIRUBIN 0.6 MG/DL (0-1.2); TOTAL PROTEIN 6.8 G/DL (6.0-8.5)
[2016-10-07 04:57] LABS: ALKALINE PHOSPHATASE 80 U/L (45-117); BUN (BLOOD UREA NITROGEN) 59 MG/DL (6-23); GLUCOSE, SERUM 78 MG/DL (60-99)
[2016-10-07 04:59] LABS: SGOT(AST) 36 U/L (5-40)
[2016-10-07 05:53] LABS: HEMOGLOBIN 7.9 g/dL (12.0-16.0); MEAN CORPUS HGB CONC 31.2 g/dL (32.0-36.0); MEAN CORPUSCULAR HEMOGLOB 29.9 pg (26.0-34.0); MEAN CORPUSCULAR VOLUME 95.8 fL (80-100); MEAN PLATELET VOLUME 9.1 fL (9.2-13.0); PLATELET COUNT 281 10/3/uL (150-400); RBC DISTRIBUTION WIDTH 20.4 % (12.0-16.0); RED CELL COUNT 2.64 10/6/uL (4.0-5.6); WHITE BLOOD CELLS 14.3 10/3/uL (4.5-10.5)
[2016-10-07 05:54] LABS: HEMATOCRIT 25.3 % (36.0-48.0)
[2016-10-07 05:55] LABS: MANUAL DIFF YES %
[2016-10-07 06:32] LABS: BAND NEUTROPHILS 12 %; EOSINOPHILS 1 %; EOSINOPHILS ABSOLUTE (CALC) 0.14 10/3/uL (0.0-0.53); LYMPHOCYTES 8 %; LYMPHOCYTES ABSOLUTE (CALC) 1.14 10/3/uL (0.67-4.30); NEUTROPHILS ABSOLUTE (CALC) 13.01 10/3/uL (2.02-8.40); SEGMENTED NEUTROPHIL (0) 79 %; TOTAL NUCLEATED CELLS 100
[2016-10-07 06:33] LABS: ANISOCYTOSIS 1+ (5-10/OIF) (0-5/OIF); PLATELET ESTIMATE ADQ (ADEQUATE)
[2016-10-07 14:08] LABS: PREALBUMIN 5.7 MG/DL (17.0-43.0)
[2016-10-08 04:15] LABS: ALLENS TEST Pos; BE (BASE EXCESS) 1.8 MEQ/L (0 +/- 2.5); CARBOXYHEMOGLOBIN 0.3 % (0-3); HCO3 (ACTUAL BICARBONATE) 24.6 MEQ/L (23-27); HEMOBLOGIN CONTENT 7.7 G/DL (12-16); INSTRUMENT SERIAL # 11843; METHEMOGLOBIN 0.5 % (0-3); MODE CMV; O2 CONTENT 10.8 VOL% (18-24); OPERATOR ID 13415; PCO2 (CO2 TENSION) 31 MMHG (35-45); PO2 (O2 TENSION) 126 MMHG (79-93); SAMPLE Arterial; TIDAL VOLUME 400 ML; pH 7.52 (7.37-7.43)
[2016-10-08 05:36] LABS: CALCIUM, SERUM 7.4 MG/DL (8.5-10.4); CHLORIDE, SERUM 111 MMOL/L (96-112); CO2 (CARBON DIOXIDE) 23 MMOL/L (24-34); CREATININE 1.68 MG/DL (0.55-1.02); GFR AFRICAN AMERICAN 34 ML/MIN (>=60); GFR NON AFRICAN AMERICAN 29 ML/MIN (>=60); GLUCOSE, SERUM 76 MG/DL (60-99); SODIUM, SERUM 146 MMOL/L (135-148)
[2016-10-08 05:38] LABS: BUN (BLOOD UREA NITROGEN) 50 MG/DL (6-23)
[2016-10-08 05:44] LABS: BASOPHILS 0.4 %; BASOPHILS ABSOLUTE 0.04 10/3/uL (0.0-0.16); EOSINOPHILS 4.4 %; EOSINOPHILS ABSOLUTE 0.49 10/3/uL (0.0-0.53); HEMOGLOBIN 7.5 g/dL (12.0-16.0); IMMATURE GRANULOCYTES 0.6 %; IMMATURE GRANULOCYTES ABSOLUTE 0.07 10/3/uL (0.0-0.11); LYMPHOCYTES 6.5 %; LYMPHOCYTES ABSOLUTE 0.72 10/3/uL (0.67-4.30); MANUAL DIFF NO %; MEAN CORPUS HGB CONC 31.3 g/dL (32.0-36.0); MEAN CORPUSCULAR HEMOGLOB 30.6 pg (26.0-34.0); MEAN PLATELET VOLUME 9.2 fL (9.2-13.0); MONOCYTES 5.3 %; MONOCYTES ABSOLUTE 0.59 10/3/uL (0.21-1.20); NEUTROPHILS 82.8 %; NEUTROPHILS ABSOLUTE 9.19 10/3/uL (2.02-8.40); PLATELET COUNT 249 10/3/uL (150-400); RBC DISTRIBUTION WIDTH 20.1 % (12.0-16.0); RED CELL COUNT 2.45 10/6/uL (4.0-5.6); WHITE BLOOD CELLS 11.1 10/3/uL (4.5-10.5)
[2016-10-09 10:41] LABS: CREATININE 1.39 MG/DL (0.55-1.02)
[2016-10-10 04:53] LABS: A/G RATIO 0.3 (0.7-1.9); ALBUMIN 1.5 G/DL (3.5-5.0); ALKALINE PHOSPHATASE 71 U/L (45-117); CALCIUM, SERUM 8.3 MG/DL (8.5-10.4); CHLORIDE, SERUM 116 MMOL/L (96-112); CO2 (CARBON DIOXIDE) 24 MMOL/L (24-34); CREATININE 1.36 MG/DL (0.55-1.02); GFR AFRICAN AMERICAN 43 ML/MIN (>=60); GFR NON AFRICAN AMERICAN 37 ML/MIN (>=60); GLOBULIN 5.4 G/DL (2.5-4.1); SGOT(AST) 12 U/L (5-40); SGPT(ALT) 8 U/L (5-65); SODIUM, SERUM 151 MMOL/L (135-148); TOTAL BILIRUBIN 0.4 MG/DL (0-1.2); TOTAL PROTEIN 6.9 G/DL (6.0-8.5)
[2016-10-10 05:00] LABS: BASOPHILS 0.1 %; BASOPHILS ABSOLUTE 0.02 10/3/uL (0.0-0.16); EOSINOPHILS 1.2 %; EOSINOPHILS ABSOLUTE 0.17 10/3/uL (0.0-0.53); HEMATOCRIT 24.8 % (36.0-48.0); HEMOGLOBIN 7.6 g/dL (12.0-16.0); IMMATURE GRANULOCYTES 0.9 %; IMMATURE GRANULOCYTES ABSOLUTE 0.13 10/3/uL (0.0-0.11); LYMPHOCYTES 9.6 %; LYMPHOCYTES ABSOLUTE 1.38 10/3/uL (0.67-4.30); MANUAL DIFF NO %; MEAN CORPUS HGB CONC 30.6 g/dL (32.0-36.0); MEAN CORPUSCULAR HEMOGLOB 29.8 pg (26.0-34.0); MEAN CORPUSCULAR VOLUME 97.3 fL (80-100); MEAN PLATELET VOLUME 8.8 fL (9.2-13.0); MONOCYTES 7.6 %; NEUTROPHILS 80.6 %; NEUTROPHILS ABSOLUTE 11.65 10/3/uL (2.02-8.40); PLATELET COUNT 237 10/3/uL (150-400); RBC DISTRIBUTION WIDTH 19.8 % (12.0-16.0); RED CELL COUNT 2.55 10/6/uL (4.0-5.6); WHITE BLOOD CELLS 14.5 10/3/uL (4.5-10.5)
[2016-10-10 05:03] LABS: BUN (BLOOD UREA NITROGEN) 36 MG/DL (6-23); GLUCOSE, SERUM 108 MG/DL (60-99); POTASSIUM, SERUM 2.5 MMOL/L (3.5-5.3)
[2016-10-10 05:43] LABS: PROCALCITONIN 3.54 ng/mL (<0.5)
== END 2016-10-14 20:39 | DRG 177 ==
LOC: ER 10:31 → MIC 15:43
PROVIDERS: Emergency Medicine; Family Medicine; Internal Medicine Critical Care Medicine; Internal Medicine Gastroenterology; Internal Medicine Infectious Disease
PROC: 30233N1 Transfusion of Nonautologous Red Blood Cells into Peripheral Vein, Percutaneous Approach (ICD-10-PCS; 2016-10-06)
PROC: 0DJ08ZZ Inspection of Upper Intestinal Tract, Via Natural or Artificial Opening Endoscopic (ICD-10-PCS; principal; 2016-10-06 18:01)
DX: J69.0 Pneumonitis due to inhalation of food and vomit (principal); K22.11 Ulcer of esophagus with bleeding; J96.21 Acute and chronic respiratory failure with hypoxia; Z99.11 Dependence on respirator [ventilator] status; L89.153 Pressure ulcer of sacral region, stage 3; N18.4 Chronic kidney disease, stage 4 (severe); E11.22 Type 2 diabetes mellitus with diabetic chronic kidney disease; I69.359 Hemiplegia and hemiparesis following cerebral infarction affecting unspecified side; D62 Acute posthemorrhagic anemia; N39.0 Urinary tract infection, site not specified; T83.518A Infection and inflammatory reaction due to other urinary catheter, initial encounter; K94.29 Other complications of gastrostomy; G40.909 Epilepsy, unspecified, not intractable, without status epilepticus; I48.2 Chronic atrial fibrillation; E03.9 Hypothyroidism, unspecified; R13.10 Dysphagia, unspecified; Z51.5 Encounter for palliative care; I12.9 Hypertensive chronic kidney disease with stage 1 through stage 4 chronic kidney disease, or unspecified chronic kidney disease; Z93.0 Tracheostomy status; Z86.718 Personal history of other venous thrombosis and embolism; Z95.810 Presence of automatic (implantable) cardiac defibrillator
CPT/HCPCS: 31720; 36415; 36600; 71010; 80048; 80053; 80076; 80185; 80202; 81001; 82140; 82272; 82565; 82805; 82962; 83605; 83735; 84100; 84134; 84145; 84484; 85025; 85610; 85730; 86850; 86900; 86901; 86920; 87040; 87070; 87077; 87086; 87184; 87186; 87205; 87493; 87493-59; 87641; 93005; 94002; 94003; 94640; 96374; 99285; A9270-GY; C9113; J0692; J1940; J1953; J2370; J2405; J2930; J3370; P9016; P9047; Q2009